=== PATIENT | male | born 1945 | race Caucasian/White ===

== ENCOUNTER 2018-03-06 22:37 | Observation (INO) ==
--- NOTE | 2018-03-06 23:01 | Emergency Department Note ---
Disposition Clinical Impression: Near syncope, Heart palpitations Disposition: Admitted As Inpatient Condition: Good Forms: ED Satisfaction Letter General Adult HPI - General Chief complaint: ED Neuro Symptoms/Deficit Stated complaint: TIA? Time Seen by Provider: 03/06/18 22:46 Source: patient Limitations: no limitations Nursing Notes Reviewed: Yes Vital Signs Reviewed: Yes - History of Present Illness HPI Narrative: Patient presents to the emergency department for multiple complaints. Patient had concern about possible stroke versus heart attack. The patient was at home approximately one hour ago when he developed what he describes as palpitations and diaphoresis. He states that he became flushed and mildly diaphoretic. The patient took his blood pressure and found to be elevated at 170. The patient tried to rest and wait his symptoms out. After approximately 15 minutes, he went to get his when he said that he was noticed to be pale and felt like he was going to pass out. Patient did not pass out. Patient did not lose consciousness. During this episode the patient did become worried about his overall symptoms and began having numbness and tingling that he describes as perioral. Not asymmetric. Involve both the upper and left lower lip in its entirety. Patient describes general heaviness in all 4 extremities and weakness that is not usual for him. Pain Scale: 0 - Related Data Home Medications Medication Instructions Recorded Confirmed Aspirin [Lo-Dose Aspirin EC] 81 mg PO 03/06/18 Lisinopril [Zestril] 10 mg PO DAILY 03/06/18 03/06/18 [place]-3 Fatty Acids [Fish Oil] 03/06/18 03/06/18 Allergies Allergy/AdvReac Type Severity Reaction Status Date / Time No Known Allergies Allergy Verified 03/06/18 22:56 Review of Systems: CONSTITUTIONAL: Generalized weakness and fatigue. No weight loss, fever, chills HEENT: Eyes: No visual changes. Ears, Nose, Throat: No hearing loss, difficulty talking or unable to swallow. SKIN: No rash or itching. CARDIOVASCULAR: Palpitations with associated diaphoresis and facial flushing. RESPIRATORY: No shortness of breath, cough or sputum. GASTROINTESTINAL: No anorexia, nausea, vomiting or diarrhea. No abdominal pain or blood. GENITOURINARY: No burning on urination or hematuria. NEUROLOGICAL: Near syncope No headache, dizziness, paralysis, ataxia, numbness or tingling in the extremities. No change in bowel or bladder control. MUSCULOSKELETAL: No muscle pain, back pain, joint pain or stiffness. Past Medical History - Past Medical History Medical history: Reports: hypertension Psychiatric history: Reports: no psych history - Social History Smoking Status: Former smoker Smokeless Tobacco Status: No Alcohol use: Reports: rarely Drug use: Reports: none Physical Exam General: Well appearing, nontoxic, no acute distress Head: Normocephalic Atraumatic Eyes: PERRL, EOMI ENT: Airway patent, no stridor Neck: supple, no meningismus Chest: Lungs clear to auscultation bilateral Cardiac: Regular rate and rhythm, no murmurs, rubs or gallops Abdomen: soft, nontender, nondistended; no guarding, rebound, or tenderness to percussion Musculoskeletal: Calves symmetric, nontender, no palpable cord Skin: No rash, normal skin tone Neuro: Alert and Oriented to person, place, and time; No focal deficit, CN 2-12 symmetric and intact. Full sensation throughout the upper and lower extremities. Strength 5 out of 5 to the bilateral upper and lower extremities. Finger to nose and heel to kessler intact. - General Limitations: no limitations General appearance: alert, in no apparent distress Course Course Narrative: Symptoms resolved approximately half hour after onset. Patient states he is now back to baseline. Patient's symptoms concerning for both near syncope as well as the palpitations and diaphoresis being associated with possible arrhythmia or chest pain equivalent. Patient will likely need admission to the hospital. Workup is still pending. - Reevaluation(s) Reevaluation #1: Patient's EKG and blood work are unremarkable. I do believe the patient will benefit from cycled enzymes as he did have the palpitations and diaphoresis only an hour prior to arrival. Patient's near syncope and no previous cardiac evaluation will deserve further workup. - Consultations Consultation #1: Discussed with hospitalist. Nursing notes did have concern for TIA. I do believe this is related to his anxiety from knowing that he might be having a heart attack or that something serious might be wrong. His neuro symptoms included perioral numbness. Hospitalist has requested a CT of the head which I believe is reasonable. CT of the head has been ordered. If this is negative, the patient has been accepted for admission. Vital Signs Temperature 97.7 F 03/06/18 22:40 Pulse Rate 78 03/06/18 22:40 Respiratory Rate 16 03/06/18 22:40 Blood Pressure 150/73 03/06/18 22:40 O2 Sat by Pulse Oximetry 97 03/06/18 22:40 Temperature 97.7 F 03/06/18 22:40 Pulse Rate 78 03/06/18 22:40 Respiratory Rate 16 03/06/18 22:40 Blood Pressure 150/73 03/06/18 22:40 O2 Sat by Pulse Oximetry 97 03/06/18 22:40 Oxygen Delivery Oxygen Delivery Room Air Medical Decision Making - Medical Records Medical records reviewed: Yes I reviewed the patient's medical records. - Lab Data Lab results reviewed: Yes I reviewed the patient's lab results. Result diagrams: 03/06/18 22:52 03/06/18 22:52 Lab Results 03/06/18 03/06/18 Range/Units 22:52 22:52 WBC 7.0 (4.3-11.1) K/mcL RBC 4.71 (4.19-5.50) M/mcL Hgb 14.7 (12.9-16.9) g/dL Hct 43.2 (37.5-50.1) % MCV 91.7 (83.0-100.0) fL MCH 31.2 (28.0-33.3) pg MCHC 34.0 (31.6-35.5) g/dL RDW 12.5 (11.5-14.5) % Plt Count 244 (140-400) K/mcL MPV 9.6 (9.4-12.4) fL Immature Gran % 0.3 (0-4) % Seg Neutrophils % 55.6 % Lymphocytes % 32.9 % Monocytes % 9.1 % Eosinophils % 1.7 % Basophils % 0.4 % Neutrophils # 3.9 (1.6-8.9) K/mcL Lymphocytes # 2.3 (0.6-4.6) K/mcL Monocytes # 0.6 (0.0-1.3) K/mcL Eosinophils # 0.1 (0.0-0.6) K/mcL Basophils # 0.0 (0.0-0.2) K/mcL Sodium 141 (136-145) mEq/L Potassium 3.5 (3.5-5.1) mEq/L Chloride 106 (98-107) mEq/L Carbon Dioxide 25 (23-29) mEq/L Creatinine 0.92 (0.70-1.30) mg/dL Est GFR ( Amer) > 60 (> 60) Est GFR (Non-Af Amer) > 60 (> 60) Glucose 109 H (70-105) mg/dL Calcium 10.0 (8.6-10.3) mg/dL Troponin I < 0.03 (< 0.04) ng/mL TSH 2.510 (0.340-5.600) mcIU/mL - Radiology Data Radiology results reviewed: Yes I reviewed the patient's radiology results. - EKG Data EKG #1 EKG attestation: Yes I reviewed and interpreted this EKG. EKG results narrative: EKG shows sinus rhythm with heart rate 75. EKGs CA interval of 209. QRS 90. QTC 392. No significant elevations or depressions.
[2018-03-06 23:24] LABS: Basophils % 0.4 %; Eosinophils # 0.1 K/mcL (0.0-0.6); Eosinophils % 1.7 %; Hematocrit 43.2 % (37.5-50.1); Hemoglobin 14.7 g/dL (12.9-16.9); Immature Granulocytes % 0.3 % (0-4); Lymphocytes # 2.3 K/mcL (0.6-4.6); Lymphocytes % 32.9 %; Mean Corpuscular Hemoglobin 31.2 pg (28.0-33.3); Mean Corpuscular Volume 91.7 fL (83.0-100.0); Mean Platelet Volume 9.6 fL (9.4-12.4); Monocytes # 0.6 K/mcL (0.0-1.3); Monocytes % 9.1 %; Neutrophils # 3.9 K/mcL (1.6-8.9); Platelet Count 244 K/mcL (140-400); Red Blood Count 4.71 M/mcL (4.19-5.50); Red Cell Distribution Width 12.5 % (11.5-14.5); Segmented Neutrophils % 55.6 %
[2018-03-06 23:43] LABS: Troponin I < 0.03 ng/mL (< 0.04)
[2018-03-06 23:44] LABS: Carbon Dioxide 25 mEq/L (23-29); Chloride 106 mEq/L (98-107); Glucose 109 mg/dL (70-105); Potassium 3.5 mEq/L (3.5-5.1); Sodium 141 mEq/L (136-145); eGFR For Non-African Americans > 60 (> 60)
[2018-03-07 01:01] LABS: BUN/Creatinine Ratio 36 (6-26); Blood Urea Nitrogen 33 mg/dL (8-23); Osmolality,Calculated 300 (280-300)
--- NOTE | 2018-03-07 04:10 | Internal Med History&Physical ---
Date of Encounter: 03/07/18 Time of Encounter: 04:10 Internal Medicine - H&P: HPI Chief complaint: presyncope Admitted From: Home Plans for Post Hospital Care: Home History of present illness: Mr. Oh is a 72 year old male HTN and anemia presented to ED after episode of near syncope around 9:30 pm last night. He as reading in bed when he felt hot , flushed, dizzy , confused, pounding in his head, lourdes-oral numbness and heart palpitations. He had difficult walking due to poor balance. He took his BP 169/ 84 is high for him; he has noticed for past year his heart stays in 90s-100s range. He had abdominal cramping, nausea, and diarrhea but not vomiting. He had just taken a Tylenol PM before symptoms began but has never had a reaction before. He called [facility] nurse phone line who thought he had difficult speaking and told him to come to ER. His symptoms resolved with in 20-30 minutes and he was left feeling weak. This has never happened before. In ED, BP 150/73 came down to 126/81 with HR in 70s with out intervention. CT Head showed atrophy and age related changes but no acute process. Troponin was negative. He had "borderline " hyperlipidemia on recent lipid panel and was told to take fish oil. He had a normal carotid screening year ago at [facility]. 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 His surgical history is distant appendectomy and knee meniscus repair on December 09 2017. He has no personal history of CAD, RI or heart disease but his father had CABG at age 84. He smoked for 2 years but quit over 50 years ago. He drinks about one beer per month and denies illicit substances. He has had no recent travel, sick contacts, or exposure to suspicious foods. Past Med Surg Social Fam HX - Past Medical History Medical history: hypertension Psychiatric history: no psych history - Past Surgical History Surgical History: appendectomy Additional surgical history: Knee sx - Social History Smoking Status: Former smoker Smokeless Tobacco Status: No Alcohol use: rarely Drug use: none - Family History Father Living Status: Age at : 97 Hx Family Cardiac Disorders: Yes (CABG) Mother Living Status: Hx Family Psychosocial Disorders: Yes (Alzheimer's) Internal Medicine - H&P: Meds Aspirin [Lo-Dose Aspirin EC] 81 mg PO 03/06/18 [History] Lisinopril [Zestril] 10 mg PO DAILY 03/06/18 [History] [place]-3 Fatty Acids [Fish Oil] 03/06/18 [History] 3 Allergy/AdvReac Type Severity Reaction Status Date / Time No Known Allergies Allergy Verified 03/06/18 22:56 All Systems PM: A 10-system review of systems was performed and is negative for pertinent findings except as documented above in the HPI. - Constitutional Constitutional: excessive sweating, weakness - EENT Eyes: change in vision, no loss of vision, no tunnel vision - Cardiovascular Cardiovascular ROS IM: diaphoresis, lightheadedness, palpitations, no chest pain , no edema - Respiratory Respiratory: no cough, no wheezing - Gastrointestinal Gastrointestinal: cramping, diarrhea, nausea, no constipation - Genitourinary Genitourinary ROS male: no dysuria, no hematuria, no urinary frequency, no urinary incontinence - Musculoskeletal Musculoskeletal ROS IM: arthralgias, no muscle cramps, no muscle weakness, no tingling - Neurological Neurological ROS: abnormal hearing, abnormal speech, confusion, disequilibrium, paresthesias, other, no headache(s) Additional comments: acute per ioral paretheasias resolved, chronic hearing defect - Constitutional Vitals: Temp Pulse Resp BP Pulse Ox 97.7 F 79 16 129/69 95 03/07/18 02:03/07/18 02:03/07/18 02:03/07/18 02:03/07/18 02:23 General appearance: Present: cooperative, A&O X 3, pleasant, no acute distress, answers questions appropriately Exam: resting comfortably in bed - Head Head exam: Present: atraumatic, normocephalic - Eye Eye exam: Present: EOMI, PERRL - ENT ENT exam: Present: mucous membranes moist, normal oropharynx - Respiratory Respiratory exam: Present: CTAB. Absent: rales, respiratory distress, wheezes - Cardiovascular Cardiovascular exam: Present: RRR. Absent: gallop, rubs - GI/Abdominal GI/Abdominal exam: Present: normal bowel sounds, soft. Absent: mass, tenderness - Extremities Exam Extremities exam: Present: full ROM, radial pulses palpable and symmetrical. Absent: pedal edema, tenderness - Neurological Exam Neurological exam: Present: CN II-XII intact, no focal deficits, strengths equal and symetr throughout. Absent: motor sensory deficit, pronater drift, facial droop, speech deficit Additional comments: heel kessler test normal - Psychiatric Psychiatric exam: Present: normal affect, normal mood Internal Med - H&P Results - Labs CBC & Chem 7: 03/06/18 22:52 03/06/18 22:52 - Impressions ITS Impressions Head CT 03/07/18 23:57 IMPRESSION: No acute intracranial abnormality. Slight cerebral atrophy and chronic ischemic changes present appropriate for age. D/ / Nnamdi Yi MD / Nnamdi Yi MD Interpreting Provider: Nnamdi Yi MD - Assessment and plan (1) TIA (transient ischemic attack) Current Visit: Yes Status: Suspected Assessment and plan: Suspicions is low given lack of risk factors but it would explain near syncope and associated temporary symptoms - [facility]ot[facility] - need to obtain records to verify (2) Arrhythmia Current Visit: Yes Status: Suspected Assessment and plan: Suspicion for Atrial fibrillation . Low concern for ACS given lack of chest pain and Heart Score of 3. -EKG showed no acute changes and normal rhythm - troponin negative x 2 - TSH wnl - consider ordering in patient echo and stress test inpatient - we offered patient the option of an out patient stress and possible echo - he would prefer to be discharged after 3rd troponin (3) DVT prophylaxis Current Visit: Yes Status: Acute Assessment and plan: ambulation - Time Spent With Patient Total time spent is greater than 50% in coordination of care (as documented) at patient's floor/unit and/or counseling patient: 25 - 35 minutes
[2018-03-07] MEDS ORDERED: Naloxone 0.4 MG/ML INJ IVP PRN (04:40)
[2018-03-07] MEDS ORDERED: Acetaminophen 325 MG TABLET PO PRN (04:40)
[2018-03-07] MEDS ORDERED: Ondansetron ODT 4 MG TAB.RAPDIS SL PRN (04:40)
[2018-03-07] MEDS ORDERED: Aspirin 81 MG TAB.CHEW PO SCH (09:00)
[2018-03-07 11:53] VITALS: BP 119/74
--- NOTE | 2018-03-07 12:25 | Discharge Summary ---
Orders not resulted at time of discharge: Pending orders 03/07/18 10:50 Lipid Panel Routine Date of Encounter: 03/07/18 Time of Encounter: 12:21 - Discharge Diagnosis (1) TIA (transient ischemic attack) Priority: Primary Status: Suspected Assessment and Plan: Low suspicion for TIA given lack of risk factors and presentation as well as quick resolution; has history of hyperlipidemia, taking Fish oil, continue aspirin, are taking lisinopril. Only complaints are perioral numbness/tingling. No other focal deficits reported; CT of head obtained and found to have no acute intracranial abnormality Patient was found to have hypertensive urgency upon arrival. Taking lisinopril home. With resolution of hypertension symptoms quickly resolved. Blood pressure back to baseline, continue lisinopril at home dose. We will need to follow-up with PCP at [facility] for further up titration of antihypertensives. Continues to have nonfocal neurological exam. Recent workup approximately 1 years ago included a carotid ultrasound which was normal without stenosis Patient also reporting palpitations with suspicion for arrhythmia however, no arrhythmic events found on telemetry. EKG showed no acute changes with normal sinus rhythm. Troponins are negative 3. TSH WNL. Low concern for ACS given lack of chest pain and presentation, heart score of 3 Discussed with the patient obtaining further workup including MRI of head, stress test and echocardiogram however, patient declined and states that he has adequate follow-up with his PCP at the [facility] and he would prefer to follow-up there. Warm to return to the ED should his symptoms return and/or worsen or should he began to experience chest pain/pressure or discomfort. The patient verbalized understanding denies any further questions at this time. (2) Heart palpitations Priority: Primary Status: Acute (3) Near syncope Priority: Secondary Status: Acute (4) Arrhythmia Priority: Secondary Status: Suspected Qualifiers: Arrhythmia type: unspecified cardiac arrhythmia Qualified Code(s): I49.9 - Cardiac arrhythmia, unspecified Hospital course: Mr. Oh is a 72 year old male Admitted with concerns for TIA however, patient also experiencing hypertensive urgency. With improvement of blood pressure, symptoms are improved. Patient was reporting perioral numbness and heart palpitations otherwise no neurological symptoms reported. Symptoms likely caused by hypertensive urgency. His blood pressure improves symptoms also resolved. Continue current anti-HTN regimen at home dosing. We will likely need up titration from PCP. Given palpitations on presentation the patient would likely benefit from a Holter monitor, and cardiac workup. He was offered echocardiogram and stress test however declined. Additionally, he was offered to have MRI for further evaluation while inpatient. However, patient declines and reports he wants to discharge home instead and will follow up with his PCP at the [facility] in [place] for further workup and testing. Discharge discussed with: patient, nurse - Time Spent with Patient Total time spent providing and/or coordinating discharge services: Less than 30 minutes - Discharge Medications Home Medications: Aspirin [Lo-Dose Aspirin EC] 81 mg PO 03/06/18 [History] Lisinopril [Zestril] 10 mg PO DAILY 03/06/18 [History] [place]-3 Fatty Acids [Fish Oil] 03/06/18 [History] Allergies/Adverse Reactions: 3 Allergy/AdvReac Type Severity Reaction Status Date / Time No Known Allergies Allergy Verified 03/06/18 22:56 Date of admission: 03/07/18 01:06 Primary care physician: PCP [facility] Consults: 03/07/18 06:32 Consult to Spiritual Minister [CONS] Routine Reason for Consult: needs scheduled for out patient echo and stress test Discharging clinician: Regan Cole Anticipated date of discharge: 03/07/18 - Constitutional Vitals: Temp Pulse Resp BP Pulse Ox 98.0 F 70 16 119/74 97 03/07/18 11:52 03/07/18 11:52 03/07/18 11:52 03/07/18 11:52 03/07/18 11:52 General appearance: Present: cooperative, A&O X 3, pleasant, no acute distress, answers questions appropriately Exam: . - Head Head exam: Present: atraumatic, normocephalic - Eye Eye exam: Present: PERRL, conjuntiva pink, sclera anicteric Pupils: Present: PERRL - Neck Neck exam general surgery: Present: supple, trachea midline. Absent: lymphadenopathy - Respiratory Respiratory exam: Present: CTAB. Absent: accessory muscle use, rales, rhonchi, wheezes - Cardiovascular Cardiovascular exam: Present: RRR, +S1, +S2. Absent: diastolic murmur, gallop, rubs, systolic murmur - GI/Abdominal GI/Abdominal exam: Present: normal bowel sounds, soft, no peritoneal signs. Absent: distended, tenderness - Extremities Exam Extremities exam: Present: warm, radial pulses palpable and symmetrical. Absent : calf tenderness, cyanotic, pedal edema - Neurological Exam Neurological exam: Present: CN II-XII intact, oriented X3, no focal deficits. Absent: pronater drift, facial droop, speech deficit - Skin Skin exam: Present: dry, intact - Patient Status Disposition: Home, Self-Care Condition: Good Functional capacity at discharge: independent ambulation Overall status at discharge: patient is back to baseline - Discharge Instructions Follow Up With: [facility] [Primary Care Provider] - Additional Instructions: Please provide education regarding TIA and hypertension - Diet and Activity Activity: increase activity as tolerated, resume usual activities as tolerated Diet: low fat, low cholesterol, low salt diet
[2018-03-07 12:39] LABS: Chol/HDL Ratio 3.4 (0-4.9)
--- NOTE | 2018-03-11 17:32 | Electrocardiograph Report ---
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
== END 2018-03-07 13:06 | disposition home or self-care (01) ==
LOC: EMEROOARM 22:37 → 3BNU 22:37
PROVIDERS: ADMIT Family Medicine; ATTEND Pediatrics